=== PATIENT | male | born 1960 | race Caucasian/White ===

== ENCOUNTER → 2019-07-17 | Outpatient (CLI) | payer OTHER ==
[2019-07-17 20:19] LABS: CALCIUM LEVEL 8.7 MG/DL (8.8-10.2); CREATININE FOR GFR 2.73 MG/DL (0.70-1.30); GLOMERULAR FILTRATION RATE 25.5 (>49); POTASSIUM SERUM 4.4 MEQ/L (3.5-5.1)
--- NOTE | 2019-07-18 04:17 | REPPI ---
Clinical: Kidney stones. Technique: Two supine views of the abdomen and pelvis. Findings: No obvious urinary tract calcifications are identified. The bowel gas pattern is nonspecific. No organomegaly. Skeletal structures demonstrate age-related degenerative changes. Impression: No obvious urinary tract calcifications identified. Electronically Signed by Joshua Quinonez MD 07/18/2019 04:09 A
== END ==
LOC: M PLAIMG 13:55
PROVIDERS: ATTEND Nurse Practitioner Family
DX: N20.0 Calculus of kidney (principal)